=== PATIENT | female | born 1960 | race Two or more races ===

== ENCOUNTER 2025-08-19 01:24 | Emergency (ER) | payer BC, SELFPAY ==
[2025-08-19 01:25] VITALS: BP 206/109; PULSE 91; RESP 18; TEMP 36.7; O2SAT 97; BMI 25.6
--- NOTE | 2025-08-19 02:02 | XR_ITS ---
Examination: CT abdomen and pelvis without contrast. Coronal 3-D reconstructions. Sagittal 2-D reconstructions. Date and time of exam: August 19, 2025, 0232 hours INDICATIONS: Onset abdominal pain beginning 3 days ago CTDI: vol (mGy): 8.82 DLP: (mGycm): 457 Technique: Axial images of the abdomen have been obtained, 3 mm slice thickness Intravenous contrast material has not been administered. Low dose protocols were performed. One or more of the following dose reduction techniques were used; automated exposure control, adjustment of the mA and/or KV according to patient size, use of iterative reconstruction technique. Findings: Mild bibasilar bronchiectasis No visualized liver or splenic lesions Cholelithiasis, contracted gallbladder No pancreatic or adrenal mass No renal or ureteral calculi, no hydronephrosis No bowel obstruction Normal appendix Moderate stool in the colon Urinary bladder wall mild thickening with inflammatory change around the bladder Fat-containing femoral hernias Moderate osteopenia Advanced degenerative disc disease L5-S1 Moderate narrowing hip joints IMPRESSION: Mild bibasilar bronchiectasis Cholelithiasis, recommend about a biliary sonography follow-up Normal appendix Cystitis pattern, acute
[2025-08-19 02:20] VITALS: BP 206/109; PULSE 91
[2025-08-19] MEDS: ACETAMINOPHEN 325 MG TABLET 650 MG PO (02:20)
[2025-08-19] MEDS: PHENAZOPYRIDINE HCL 100 MG TABLET 200 MG PO (02:21)
[2025-08-19 02:57] LABS: Collection Type, Urine Clean Catch
[2025-08-19 02:57] LABS: Basophils # (Auto) 0.1 Thou/mm3 (0.0-0.2); Basophils % (Auto) 0 % (0-2.5); Eosinophils # (Auto) 0.1 Thou/mm3 (0.0-0.5); Eosinophils % (Auto) 1 % (0-10); Hematocrit 39.6 % (36.0-46.0); Hemoglobin 13.4 g/dL (12.0-16.0); Immature Granulocytes Auto 0.04 Thou/mm3 (0.00-0.00); Lymphocytes # (Auto) 1.4 Thou/mm3 (1.0-4.8); Lymphocytes % (Auto) 11 % (10-50); Mean Corpuscular HGB Conc 33.8 g/dl (31.0-37.0); Mean Corpuscular Hemoglobin 31.1 pg (25.0-35.0); Mean Corpuscular Volume 92 fL (80-100); Monocytes # (Auto) 0.7 Thou/mm3 (0.0-0.8); Monocytes % (Auto) 5 % (0-12); Neutrophils # (Auto) 10.9 Thou/mm3 (1.8-7.7); Neutrophils % (Auto) 83 % (37-80); Nucleated Red Blood Cell # 0.00 Thou/mm3 (0.00-0.00); Nucleated Red Blood Cell % 0 /100 WBC (0); Platelet Count 214 Thou/mm3 (140-440); RDW Standard Deviation 43.5 fL (36.4-46.3); Red Blood Count 4.31 Miln/mm3 (4.00-5.20); White Blood Count 13.1 Thou/mm3 (3.6-11.0)
[2025-08-19 03:09] LABS: Amorphous Crystals,Urine Present (Absent); Bacteria,Urine Rare; Bilirubin,Urine Negative (Negative); Blood,Urine 3+ (Negative); Clarity,Urine Turbid (Clear/Hazy); Color,Urine Lt-Yellow (Lt Yel-Yel); Glucose, Urine Negative (Negative); Ketones,Urine Negative (Negative); Leukocyte Esterase,Urine Positive (Negative); Nitrite,Urine Negative (Negative); PH,Urine 7.0 (5.0-7.0); Protein,Urine 1+ (Neg - Trace); RBC,Urine 15 /hpf (0-3); Specific Gravity,Urine 1.005 (1.001-1.035); Squamous Epithelial Cell,Urine 1 /hpf (0-5); Urobilinogen,Urine Negative mg/dL (0.0-1.0); WBC,Urine 396 /hpf (0-5)
[2025-08-19 03:10] LABS: Culture Indicated,Urine Yes; HCG Qualitative,Urine Negative
[2025-08-19 03:15] LABS: Alanine Aminotransferase 14 U/L (10-49); Albumin, Serum 4.7 gm/dL (3.4-4.8); Albumin/Globulin Ratio 2.0 (1.2-2.2); Alkaline Phosphatase 74 U/L (46-116); Anion Gap 10 (7-16); Aspartate Amino Transferase 21 U/L (0-34); BUN/Creatinine Ratio 16 Ratio (12-20); Bilirubin,Total 0.8 mg/dL (0.3-1.2); Blood Urea Nitrogen 14 mg/dL (9-23); Calcium 8.9 mg/dL (8.3-10.6); Calcium (Corrected) 8.9 mg/dL (8.5-10.1); Carbon Dioxide 25.1 mMol/L (20.0-31.0); Chloride 106 mMol/L (98-107); Creatinine (Component) 0.9 mg/dL (0.6-1.3); Estimated Creatinine Clearance 54.6 mL/min (>60); Globulin 2.4 gm/dL (2.3-3.5); Glucose 124 mg/dL (74-106); Lipase 80 U/L (12-53); Osmolality,Calculated 282 (275-295); Potassium 3.7 mMol/L (3.4-5.1); Sodium 141 mMol/L (136-145); Total Protein 7.1 gm/dL (5.7-8.2); eGFR > 60 See Note
--- NOTE | 2025-08-19 03:53 | PRELIM_ITS ---
CT scan of the abdomen and pelvis without intravenous contrast (axial sections with sagittal and coronal reformats) August 19, 2025 at 0231 hours Clinical History: Abdominal pain. Comparison: None available at the time of this report. Findings: Mild bilateral lower lobes bronchiectasis. The liver, pancreas, spleen, kidneys and adrenals are unremarkable. Gallstones without evidence of acute cholecystitis. No evidence of bowel obstruction. The appendix is within normal limits. There is no mesenteric or retroperitoneal adenopathy. Urinary bladder wall thickening associated with peripheral fat stranding. There is no free fluid or free air. Degenerative changes of the imaged portions of the spine. Chronic multilevel disc disease. No acute fractures. Vascular calcifications. Small hiatus hernia. The uterus and ovaries are within normal limits. Impression: Acute cystitis. Mild bilateral lower lobe bronchiectasis. Gallstones without evidence of acute cholecystitis. Small hiatus hernia. Report Electronically Signed By: Rajiv Priest 08/19/2025 3:53:18 AM [EST]
--- NOTE | 2025-08-19 04:27 | EDNOTE_ITS ---
ED Abdominal Pain RME/HPI General Chief Complaint: Urogenital-Female Stated complaint: poss uti Time seen by provider: 08/19/25 02:01 Arrival date/time: 08/19/25 01:24 This is a case of 64-year-old female with history of hypertension came in in the emergency room due to lower abdominal pain nonradiating sharp in character for 2 days associated with painful urination no blood in the urine no nausea no vomiting no constipation no diarrhea no blood in stool persistence of the symptoms this patient decided to sought consult here in the emergency room Limitations: no limitations Related Data Previous Rx's ?Medication ?Instructions ?Recorded ciprofloxacin HCl 500 mg tablet 500 mg PO BID 10 days #20 tabs 08/19/25 (Cipro) ondansetron 4 mg disintegrating 4 mg PO Q8H #20 tabs 1 10/19/24 tablet phenazopyridine 200 mg tablet 200 mg PO TID 6 doses #6 tabs 08/19/25 (Pyridium) Allergies Allergy/AdvReac Type Severity Reaction Status Date / Time No Known Allergies Allergy Verified 08/19/25 02:09 Review of Systems Constitutional Constitutional: Reports system reviewed and no additional complaints, except as documented and Reports as per HPI Cardiovascular Cardiovascular: Reports system reviewed and no additional complaints, except as documented and Reports as per HPI Respiratory Respiratory: Reports system reviewed and no additional complaints, except as documented and Reports as per HPI Gastrointestinal Gastrointestinal: Reports system reviewed and no additional complaints, except as documented and Reports as per HPI Musculoskeletal Musculoskeletal: Reports system reviewed and no additional complaints, except as documented and Reports as per HPI Neurologic Neurologic: Reports system reviewed and no additional complaints, except as documented and Reports as per HPI Past Medical History Social History SMOKING STATUS: Never smoker ED Exam General Limitations: Present no limitations General appearance: Present alert, in no apparent distress and other (Awake alert oriented not in distress nontoxic looking well-hydrated well-nourished) Head Head exam: Present atraumatic, normocephalic and normal inspection Eye Eye exam: Present normal appearance, PERRL and EOMI ENT ENT exam: Present normal exam, normal oropharynx and mucous membranes moist Neck Neck exam: Present normal inspection, full ROM and trachea midline; Absent tenderness, meningismus, lymphadenopathy or thyromegaly Chest Chest inspection: Present normal inspection and symmetric chest wall rise; Absent tenderness Respiratory Respiratory exam: Present normal lung sounds bilaterally; Absent respiratory distress, wheezes, stridor, accessory muscle use or prolonged expiratory phase Cardiovascular Cardiovascular exam: Present regular rate, normal rhythm and normal heart sounds; Absent bradycardia, tachycardia, irregular rhythm, systolic murmur or diastolic murmur Abdominal Exam Abdominal exam: Present soft, tenderness (Mild tenderness suprapubic area no guarding no rebound no rigidity no CVA tenderness) and normal bowel sounds; Absent distention, guarding, rebound, rigidity, diminished bowel sounds, hyperactive bowel sounds, hypoactive bowel sounds, organomegaly, trauma, psoas sign, obturator sign, Zhao's sign, Rovsing's sign, tenderness at McBurney's Point or hernia Extremities Exam Extremities exam: Present normal inspection and full ROM Back Exam Back exam: Present normal inspection and full ROM Neurological Exam Neurological exam: Present alert, oriented X3, CN II-XII intact, normal gait and reflexes normal; Absent motor sensory deficit Psychiatric Psychiatric exam: Present normal affect and normal mood Skin Skin exam: Present warm, dry, intact, normal color and other (Excellent skin turgor) Course Quality Measures none Orders Category Date Time Status CT abdomen pelvis wo con Stat Exams 08/19/25 02:02 Completed CBC Stat Lab 08/19/25 02:42 Completed Comprehensive Metabolic Panel Stat Lab 08/19/25 02:42 Completed HCG Qualitative,Urine Stat Lab 08/19/25 01:30 Completed Lipase Stat Lab 08/19/25 02:42 Completed Urinalysis, C/S if Indicated Stat Lab 08/19/25 01:30 Completed Urine Culture Stat Lab 08/19/25 01:30 Received Acetaminophen Tab [Tylenol Tab] Med 08/19/25 02:02 Discontinued 650 mg PO X1 ONE Phenazopyridine HCl [Pyridium] Med 08/19/25 02:02 Discontinued 200 mg PO X1 ONE cefTRIAXone [Rocephin] 1,000 mg Med 08/19/25 04:27 Discontinued Lidocaine 1% Pf 5 ml [Xylocaine 1% Pf 5 ml] 2.1 ml IM X1 cloNIDine HCL [Catapres] Med 08/19/25 02:02 Discontinued 0.2 mg PO X1 ONE Vital Signs Vital signs: Vital Signs Temperature 98.1 F 08/19/25 01:25 Pulse Rate 91 08/19/25 01:25 Respiratory Rate 18 08/19/25 01:25 Blood Pressure 206/109 H 08/19/25 01:25 Pulse Oximetry (%) 97 08/19/25 01:25 Oxygen Delivery Method Room Air 08/19/25 01:25 Oxygen saturation 97% room air Abdominal Pain MDM MDM Narrative MDM Narrative:: This is a case of 64-year-old female with history of hypertension came in in the emergency room due to lower abdominal pain nonradiating sharp in character for 2 days associated with painful urination no blood in the urine no nausea no vomiting no constipation no diarrhea no blood in stool persistence of the symptoms this patient decided to sought consult here in the emergency room physical examination patient is awake alert oriented not in distress nontoxic looking well-hydrated well-nourished noted moderate tenderness in the suprapubic area no guarding no rebound no rigidity no tenderness negative psoas negative straight or negative Rovsing's negative McBurney's negative Zhao sign negative CVA tenderness excellent skin turgor no signs and symptoms of sepsis no signs and symptoms of dehydration no signs and symptoms of hypoxia the rest of the physical examination neurological exam is normal and unremarkable blood test showed leukocytosis at 13,000 no anemia platelet is normal kidney and liver function is normal no electrolyte imbalance lipase is slightly elevated 80 but the pancreas and the CT scan were normal and unremarkable thus I did not do any further testing patient urinalysis showed WBC and RBC in the urine suggestive of urinary tract infection patient CT scan showed cholelithiasis and umbilical hernia and cystitis based on my physical examination and history patient symptoms suggestive of urinary tract infection patient was given ceftriaxone IM here in the emergency room and was discharged with cephalexin to be taken for 10 days patient was advised to follow-up to PCP to be referred to GI specialist for cholelithiasis and umbilical hernia and urologist to referred for cystitis she was also advised that she needs to see a general surgeon for further evaluation and treatment of cholelithiasis worsening symptoms or any emergent concern return precaution in the ER was advised Patient was discharged with comfortable condition walking with stable gait. Patient verbalized no further complains explained diagnosis and answered patient question. Patient is comfortable with the proposed management plan including the need to follow up with his/her primary care physician and any specialist if applicable Discussed patient for any urgent condition or worsening sx, He/She needed to go to emergency room immediately or call 911. Patient acknowledge the responsibility to follow up as instructed and to monitor her/his symptoms. For any persistence of the symptoms for more than 3-5 days return precaution advised. Discussed the result of the test and was given printed discharge i nstruction Patient data External records reviewed:: [facility] previous records Clinical information provided by:: patient Social determinants that could affect healthcare access:: none Patient has the following chronic illnesses:: None How is presenting disease/condition affected by chronic disease/condition?: no chronic disease Evaluation data The following diagnostics were reviewed and interpreted by me:: lab results and radiology exam(s) Lab and/or radiology exams considered but not ordered:: Reviewed Interpretation Summary: Reviewed Medications / Prescriptions Medications or Prescriptions considered but not ordered:: Given Medication administrations:: Medication Administration History Discontinued Medications Acetaminophen (Acetaminophen 325 Mg Tablet) 650 mg PO X1 ONE Stop: 08/19/25 02:03 Last Admin: 08/19/25 02:20 Dose: 650 mg Documented By: ALBERTO Clonidine (Clonidine Hcl 0.1 Mg Tablet) 0.2 mg PO X1 ONE Stop: 08/19/25 02:03 Last Admin: 08/19/25 02:20 Dose: 0.2 mg Documented By: ALBERTO Ceftriaxone Sodium 1,000 mg/ (Lidocaine HCl 2.1 ml) 0 mg IM X1 ONE Stop: 08/19/25 04:28 Last Admin: 08/19/25 04:46 Dose: 1,000 mg Documented By: ALBERTO Phenazopyridine HCl (Phenazopyridine Hcl 100 Mg Tablet) 200 mg PO X1 ONE Stop: 08/19/25 02:03 Last Admin: 08/19/25 02:21 Dose: 200 mg Documented By: ALBERTO Given Consultations Consultation(s) initiated? (list below): No Diagnosis Differential diagnosis abdominal pain: abdominal pain, acute appendicitis, calculus of kidney, diverticulitis, endometriosis, gastroenteritis and pancreatitis Most likely diagnosis given after review of the tests above:: Cholelithiasis umbilical hernia cystitis urinary tract infection Admission Indicated Admission indicated?: not indicated Explain why admission is indicated or not indicated:: Not indicated Admission Request Was there a request for admission?: No Admission Attestation Admission request attestation: Not indicated Disposition Plan Disposition Plan: Discharge Discharge Attestation Discharge Attestation: The patient and all family members were given an opportunity to ask questions and understood the discharge instructions. Discharge instructions specifically effects, indications for sooner follow up or return to the emergency department, and the expected course of current diagnosis. Patient condition: Stable Discharge Plan Plan Patient Disposition: HOME (Self Care) Patient condition on transfer: Stable Prescriptions/Referrals Prescriptions/Med Rec: New ciprofloxacin HCl [Cipro] 500 mg tablet 500 mg PO BID 10 Days Qty: 20 0RF phenazopyridine [Pyridium] 200 mg tablet 200 mg PO TID 0 Days Qty: 6 0RF ondansetron 4 mg tablet,disintegrating 4 mg PO Q8H Qty: 20 0RF Referrals: No Primary/Family,Physician [Primary Care Provider] - In 1 week Problem List Clinical Impression: Abdominal pain, Cholelithiasis, Hernia, umbilical, Cystitis Patient/Caregiver Discharge Instructions Education Materials: Abdominal Pain, Treating Gallstones, ED Hernia (Adult), ED CYSTITIS Female Adult Additional Instructions: Follow-up with your primary care physician in 2 days for reevaluation and to be referred to urologist for further evaluation and treatment of cystitis and to be referred to mail technician for umbilical hernia and cholelithiasis and possible general surgeon for cholelithiasis worsening symptoms or any emergent concern call 911 or go to the nearest emergency room take your medication as directed finish the course of antibiotic increase water intake keep hydrated Pedialyte Gatorade for hydration avoid skipping of meals avoid fatty fried high cholesterol food avoid soda coffee alcohol avoid spicy food increase water intak e advised Print Language: Z[place]ian Stand Alone Forms: Angi Award Info., Patient Portal Info Letter PA/CLASSIFIED ADVERTISING SUPERVISOR Supervising Physician PA/CLASSIFIED ADVERTISING SUPERVISOR Supervising Physician: Dr. Martines
[2025-08-19 04:34] VITALS: BP 95/61; PULSE 73; RESP 18; TEMP 36.9; O2SAT 97
== END 2025-08-19 05:16 | disposition home or self-care (01) ==
PROVIDERS: Nurse Practitioner Family; Emergency Provider Emergency Medicine
DX: K80.20 Calculus of gallbladder without cholecystitis without obstruction (principal); N30.90 Cystitis, unspecified without hematuria; K42.9 Umbilical hernia without obstruction or gangrene
CPT/HCPCS: 36415; 74176; 80053; 81001; 81025; 83690; 85025; 87077; 87086; 87186; 96372; 99283; J0696; J3490; A9270